=== PATIENT | male | born 1955 | race Caucasian/White ===

== ENCOUNTER 2017-11-19 16:34 | Emergency (ER) | payer OTHER ==
[~2017-11-19] VITALS: Ht 182.9 cm; Wt 77.1 kg
[2017-11-19 16:37] VITALS: Ht 182.9 cm; Wt 77.1 kg
[2017-11-19 17:45] LABS: BASOPHIL % 0.6 % (0-2)
[2017-11-19 17:48] LABS: PLATELET COUNT 418 x10^3mcL (130-400); RED CELL DISTRIBUTION WIDTH 15.9 % (11.5-14.5)
[2017-11-19 18:01] LABS: CALCIUM 8.4 mg/dL (8.5-10.1); CARBON DIOXIDE 25.3 mmol/L (21-32); CHLORIDE SERUM 98 mmol/L (98-107); CREATININE SERUM 0.9 mg/dL (0.7-1.3); GFR1 > 60 mL/min; GLUCOSE SERUM 103 mg/dL (74-106); POTASSIUM SERUM 4.4 mmol/L (3.5-5.1); SODIUM SERUM 140 mmol/L (136-145)
[2017-11-19 18:06] LABS: ALKALINE PHOSPHATASE 160 U/L (46-116); ALT/SGPT 29 U/L (16-63); AST/SGOT 36 U/L (15-37); BILIRUBIN TOTAL 0.3 mg/dL (0.20-1.00)
[2017-11-19 18:12] LABS: TOTAL PROTEIN, SERUM 8.4 g/dL (6.4-8.2)
[2017-11-19 21:58] VITALS: BP 117/86
== END 2017-11-19 22:08 | disposition short-term general hospital (02) ==
LOC: ED 16:34 → EDBEDREQSVC 21:51 → ED 22:08
PROVIDERS: Emergency Medicine
DX: R07.89 Other chest pain (principal); Z88.6 Allergy status to analgesic agent
CPT/HCPCS: 83880; 87804; J0696; J1885; J3010; J7030; J7040; J7613; J7644; Q0092

== ENCOUNTER 2018-01-15 18:41 | Emergency (ER) | payer OTHER ==
[~2018-01-15] VITALS: Ht 180.3 cm; Wt 61.2 kg
[2018-01-15 18:50] VITALS: Ht 180.3 cm; Wt 61.2 kg
[2018-01-15 19:10] LABS: BASOPHIL % 0.8 % (0-2)
[2018-01-15 19:12] LABS: PLATELET COUNT 569 x10^3mcL (130-400); RED CELL DISTRIBUTION WIDTH 15.7 % (11.5-14.5)
[2018-01-15 19:20] LABS: CALCIUM 7.9 mg/dL (8.5-10.1); CARBON DIOXIDE 22.1 mmol/L (21-32); CHLORIDE SERUM 96 mmol/L (98-107); CREATININE SERUM 0.9 mg/dL (0.7-1.3); GFR1 > 60 mL/min; GLUCOSE SERUM 140 mg/dL (74-106); POTASSIUM SERUM 4.2 mmol/L (3.5-5.1); SODIUM SERUM 137 mmol/L (136-145)
[2018-01-15 19:27] LABS: ALBUMIN 3.6 g/dL (3.4-5.0); ALKALINE PHOSPHATASE 127 U/L (46-116); ALT/SGPT 40 U/L (16-63); AMYLASE 71 U/L (25-115); AST/SGOT 47 U/L (15-37); BILIRUBIN TOTAL 0.5 mg/dL (0.20-1.00); LIPASE 394 IU/L (73-393); TOTAL PROTEIN, SERUM 7.4 g/dL (6.4-8.2)
[2018-01-15 22:10] VITALS: BP 113/81
== END 2018-01-15 22:10 | disposition home or self-care (01) ==
LOC: ED 18:41
PROVIDERS: Emergency Medicine
DX: K85.20 Alcohol induced acute pancreatitis without necrosis or infection (principal); E83.51 Hypocalcemia; K21.9 Gastro-esophageal reflux disease without esophagitis; Z88.6 Allergy status to analgesic agent
CPT/HCPCS: 83880; C9113; J2270; J2765; J3490; J7030

== ENCOUNTER 2018-04-14 01:06 | Inpatient (IN) | payer OTHER ==
[~2018-04-14] VITALS: Ht 180.3 cm; Wt 72.6 kg
[2018-04-14 01:58] LABS: BASOPHIL % 0.5 % (0-2); PLATELET COUNT 518 x10^3mcL (130-400); RED CELL DISTRIBUTION WIDTH 15.6 % (11.5-14.5)
[2018-04-14 02:04] LABS: CARBON DIOXIDE 28.2 mmol/L (21-32); CHLORIDE SERUM 96 mmol/L (98-107); GFR1 > 60 mL/min; GLUCOSE SERUM 138 mg/dL (74-106); POTASSIUM SERUM 3.5 mmol/L (3.5-5.1); SODIUM SERUM 138 mmol/L (136-145)
[2018-04-14 02:06] LABS: ALKALINE PHOSPHATASE 164 U/L (46-116); ALT/SGPT 19 U/L (16-63); AST/SGOT 34 U/L (15-37); BILIRUBIN TOTAL 0.53 mg/dL (0.20-1.00); LIPASE 575 IU/L (73-393); TOTAL PROTEIN, SERUM 7.4 g/dL (6.4-8.2)
[2018-04-14 02:09] LABS: ALBUMIN 3.1 g/dL (3.4-5.0)
[2018-04-14] MEDS ORDERED: SERO100 PO (04:03)
[2018-04-14] MEDS ORDERED: SUBOXONE1 FI1 SL (04:04)
[2018-04-14 04:13] LABS: AMPHETAMINE QUAL UR NONE DETECTED (See below)
[2018-04-14 04:32] LABS: PHOSPHOROUS 4.3 mg/dL (2.5-4.9)
[2018-04-14 04:36] LABS: T3 TOTAL 1.04 ng/mL
[2018-04-14 04:39] LABS: FREE T4 1.06 ng/dL (0.76-1.46); FREE THYROXINE INDEX 2.4 ug/dL (1.4-4.5); T4(THYROXINE) 6.8 ug/dL (4.7-13.3)
[2018-04-14 04:45] VITALS: BP 130/92
[2018-04-14 06:39] LABS: IRON 120 ug/dL (65-170); TOTAL IRON BINDING CAPACITY 310 ug/dL (250-450)
[2018-04-14 08:20] LABS: RED BLOOD CELLS 4.73 M/mm3 (4.52-5.90)
[2018-04-14 09:22] VITALS: BP 135/77
[2018-04-14 14:00] VITALS: BP 136/87
[2018-04-14 15:13] LABS: microscopic required? NO
[2018-04-14 15:18] LABS: urine erythrocyte NEGATIVE (NEGATIVE)
[2018-04-14 17:10] VITALS: BP 128/86
[2018-04-14 20:48] VITALS: BP 122/74
[2018-04-15 05:29] VITALS: BP 131/78
[2018-04-15 06:39] LABS: BASOPHIL % 0.5 % (0-2); PLATELET COUNT 354 x10^3mcL (130-400)
[2018-04-15 06:48] LABS: CARBON DIOXIDE 27.4 mmol/L (21-32); CHLORIDE SERUM 100 mmol/L (98-107); CREATININE SERUM 0.8 mg/dL (0.7-1.3); GFR1 > 60 mL/min; GLUCOSE SERUM 90 mg/dL (74-106); LIPASE 842 IU/L (73-393); POTASSIUM SERUM 3.3 mmol/L (3.5-5.1); SODIUM SERUM 134 mmol/L (136-145)
[2018-04-15 09:31] VITALS: BP 137/82
[2018-04-15 13:14] VITALS: BP 142/81
[2018-04-15 16:37] VITALS: BP 136/81
[2018-04-15 20:19] VITALS: BP 134/80
[2018-04-16 05:33] VITALS: BP 119/77
[2018-04-16 06:05] LABS: BASOPHIL % 0.5 % (0-2); PLATELET COUNT 367 x10^3mcL (130-400)
[2018-04-16 06:08] LABS: AMYLASE 50 U/L (25-115); CALCIUM 7.3 mg/dL (8.5-10.1); CARBON DIOXIDE 28.8 mmol/L (21-32); CHLORIDE SERUM 101 mmol/L (98-107); CREATININE SERUM 0.8 mg/dL (0.7-1.3); GFR1 > 60 mL/min; GLUCOSE SERUM 91 mg/dL (74-106); LIPASE 454 IU/L (73-393); POTASSIUM SERUM 3.2 mmol/L (3.5-5.1); SODIUM SERUM 136 mmol/L (136-145)
[2018-04-16 06:37] LABS: RED CELL DISTRIBUTION WIDTH 16.4 % (11.5-14.5)
[2018-04-16 08:53] VITALS: BP 131/83
[2018-04-16 12:53] VITALS: BP 142/88
[2018-04-16 16:42] VITALS: BP 129/80
[2018-04-16 20:59] VITALS: BP 113/76
[2018-04-17 05:39] VITALS: BP 115/74
[2018-04-17 06:28] LABS: BASOPHIL % 0.3 % (0-2); PLATELET COUNT 329 x10^3mcL (130-400)
[2018-04-17 06:29] LABS: RED CELL DISTRIBUTION WIDTH 16.3 % (11.5-14.5)
[2018-04-17 06:47] LABS: CALCIUM 8.1 mg/dL (8.5-10.1); CARBON DIOXIDE 26.7 mmol/L (21-32); CHLORIDE SERUM 104 mmol/L (98-107); GFR1 > 60 mL/min; GLUCOSE SERUM 90 mg/dL (74-106); POTASSIUM SERUM 3.7 mmol/L (3.5-5.1); SODIUM SERUM 139 mmol/L (136-145)
[2018-04-17 09:21] VITALS: BP 106/61
[2018-04-17] MEDS ORDERED: TYL325 PO (13:29)
[2018-04-17] MEDS ORDERED: SERTRALINE50 M1 PO (13:31)
[2018-04-17] MEDS ORDERED: SERO100 PO (13:35)
[2018-04-17 13:51] VITALS: BP 131/88
[2018-04-17 14:29] VITALS: BP 131/88
== END 2018-04-17 17:40 | disposition home or self-care (01) | DRG 282 ==
LOC: ED 01:06 → DU 03:51
PROVIDERS: Emergency Medicine; Family Medicine
DX: K85.20 Alcohol induced acute pancreatitis without necrosis or infection (principal); F10.221 Alcohol dependence with intoxication delirium; E44.1 Mild protein-calorie malnutrition; F33.1 Major depressive disorder, recurrent, moderate; T51.0X1A Toxic effect of ethanol, accidental (unintentional), initial encounter; K92.1 Melena; E87.6 Hypokalemia; F11.23 Opioid dependence with withdrawal; F41.1 Generalized anxiety disorder; D64.9 Anemia, unspecified; Z63.4 Disappearance and death of family member; Y90.8 Blood alcohol level of 240 mg/100 ml or more
CPT/HCPCS: 83880; 84439; C9113; G0480; J1170; J2060; J2270; J2405; J7030; Q0092

== ENCOUNTER 2018-04-22 06:06 | Inpatient (IN) | payer OTHER ==
[~2018-04-22] VITALS: Ht 180.3 cm; Wt 71.7 kg
[~2018-04-22 06:06] MED LIST: SERO100 PO; SERTRALINE50 M1 PO; SUBOXONE1 FI1 SL; TYL325 PO
[2018-04-22 06:10] VITALS: Ht 180.3 cm; Wt 71.7 kg
[2018-04-22 06:59] LABS: BASOPHIL % 0.4 % (0-2); PLATELET COUNT 338 x10^3mcL (130-400)
[2018-04-22 07:08] LABS: RED CELL DISTRIBUTION WIDTH 17.3 % (11.5-14.5)
[2018-04-22 07:39] LABS: ALBUMIN 3.7 g/dL (3.4-5.0); ALKALINE PHOSPHATASE 215 U/L (46-116); ALT/SGPT 42 U/L (16-63); AMYLASE 79 U/L (25-115); AST/SGOT 56 U/L (15-37); BILIRUBIN TOTAL 0.49 mg/dL (0.20-1.00); CARBON DIOXIDE 23.6 mmol/L (21-32); CHLORIDE SERUM 100 mmol/L (98-107); CHOLESTEROL 190 mg/dL (<200); CREATININE SERUM 1.2 mg/dL (0.7-1.3); GFR1 > 60 mL/min; GLUCOSE SERUM 90 mg/dL (74-106); LIPASE 590 IU/L (73-393); MAGNESIUM 2.2 mg/dL (1.8-2.4); POTASSIUM SERUM 3.7 mmol/L (3.5-5.1); SODIUM SERUM 141 mmol/L (136-145)
[2018-04-22 07:43] LABS: microscopic required? YES; urine erythrocyte NEGATIVE (NEGATIVE)
[2018-04-22 07:55] LABS: HDL CHOLESTEROL 98 mg/dL (40-60)
[2018-04-22 08:18] LABS: AMPHETAMINE QUAL UR NONE DETECTED (See below)
[2018-04-22] MEDS ORDERED: PRILOSEC OTC20 M1 (09:32)
[2018-04-22] MEDS ORDERED: SEROQUEL100 MG (09:32)
[2018-04-22 10:04] LABS: FREE T4 0.85 ng/dL (0.76-1.46); FREE THYROXINE INDEX 1.6 ug/dL (1.4-4.5); T4(THYROXINE) 5.3 ug/dL (4.7-13.3)
[2018-04-22 10:54] VITALS: BP 141/89
[2018-04-22 11:31] LABS: T3 TOTAL 0.67 ng/mL
[2018-04-22 11:59] LABS: PHOSPHOROUS 4.8 mg/dL (2.5-4.9)
== END 2018-04-22 12:52 | disposition left against medical advice (07) | DRG 282 ==
LOC: ED 06:06 → MU 09:02
PROVIDERS: Emergency Medicine; Family Medicine
DX: K85.20 Alcohol induced acute pancreatitis without necrosis or infection (principal); N17.0 Acute kidney failure with tubular necrosis; F32.9 Major depressive disorder, single episode, unspecified; F10.229 Alcohol dependence with intoxication, unspecified; Y90.8 Blood alcohol level of 240 mg/100 ml or more; Z87.891 Personal history of nicotine dependence; Z68.20 Body mass index [BMI] 20.0-20.9, adult
CPT/HCPCS: 83880; 84439; G0480; J2060; J3411; J3475; J3490; J7030; Q0092

== ENCOUNTER 2019-07-25 10:26 | Emergency (ER) | payer OTHER ==
[~2019-07-25] VITALS: Ht 180.3 cm; Wt 72.6 kg
[~2019-07-25 10:26] MED LIST changes: +PRILOSEC OTC20 M1; +SEROQUEL100 MG
[2019-07-25 10:44] VITALS: Ht 180.3 cm; Wt 72.6 kg
[2019-07-25 12:45] VITALS: BP 135/87
== END 2019-07-25 12:45 | disposition home or self-care (01) ==
LOC: ED 10:26
DX: M54.41 Lumbago with sciatica, right side (principal); F32.9 Major depressive disorder, single episode, unspecified; F41.9 Anxiety disorder, unspecified; Z85.46 Personal history of malignant neoplasm of prostate; Z88.6 Allergy status to analgesic agent

== ENCOUNTER 2019-10-14 08:55 | Emergency (ER) | payer OTHER ==
[~2019-10-14] VITALS: Ht 180.3 cm; Wt 74.4 kg
[2019-10-14 09:09] VITALS: BP 141/89
== END 2019-10-14 10:06 | disposition home or self-care (01) ==
LOC: ED 08:55
DX: S29.9XXA Unspecified injury of thorax, initial encounter (principal); Z88.6 Allergy status to analgesic agent; X58.XXXA Exposure to other specified factors, initial encounter; Y93.89 Activity, other specified; Y92.89 Other specified places as the place of occurrence of the external cause; Y99.8 Other external cause status

== ENCOUNTER 2020-02-24 09:59 | Emergency (ER) | payer OTHER, SELFPAY ==
[~2020-02-24] VITALS: Ht 180.3 cm; Wt 77.1 kg
[2020-02-24 10:11] VITALS: Ht 180.3 cm; Wt 77.1 kg
[2020-02-24 10:51] LABS: BASOPHIL % 0.2 % (0-2); PLATELET COUNT 347 x10^3mcL (130-400)
[2020-02-24 10:52] LABS: RED CELL DISTRIBUTION WIDTH 15.3 % (11.5-14.5)
[2020-02-24 11:10] LABS: microscopic required? NO
[2020-02-24 11:29] LABS: T3 TOTAL 1.36 ng/mL
[2020-02-24 11:40] LABS: ALBUMIN 3.5 g/dL (3.4-5.0); ALKALINE PHOSPHATASE 141 U/L (46-116); ALT/SGPT 28 U/L (16-63); AST/SGOT 61 U/L (15-37); BILIRUBIN TOTAL 0.56 mg/dL (0.20-1.00); CALCIUM 8.8 mg/dL (8.5-10.1); CHLORIDE SERUM 100 mmol/L (98-107); CK-MB 1.1 ng/mL (0-3.6); GFR1 > 60 mL/min; GLUCOSE SERUM 95 mg/dL (74-106); TOTAL PROTEIN, SERUM 7.4 g/dL (6.4-8.2)
[2020-02-24 11:48] LABS: FREE T4 1.41 ng/dL (0.76-1.46); FREE THYROXINE INDEX 3.5 ug/dL (1.4-4.5); T4(THYROXINE) 9.5 ug/dL (4.7-13.3)
[2020-02-24 11:53] LABS: POTASSIUM SERUM 3.9 mmol/L (3.5-5.1); SODIUM SERUM 135 mmol/L (136-145)
[2020-02-24 12:05] LABS: urine erythrocyte NEGATIVE (NEGATIVE)
[2020-02-24 12:12] LABS: C REACTIVE PROTEIN < 0.2 mg/dL (<=0.9)
[2020-02-24 12:18] LABS: ERYTHROCYTE SED RATE 10 mm/hr (0-20)
[2020-02-24 14:10] VITALS: BP 135/79
== END 2020-02-24 14:10 | disposition home or self-care (01) ==
LOC: ED 09:59
PROVIDERS: Specialist
DX: R10.816 Epigastric abdominal tenderness (principal); R11.0 Nausea; Z98.890 Other specified postprocedural states; Z88.6 Allergy status to analgesic agent
CPT/HCPCS: 36600; 84439; J2405; J3010; J7030; Q0092